=== PATIENT | male | born 1935 | race Caucasian/White ===

== ENCOUNTER 2017-10-31 20:06 | Emergency (ER) | payer MEDICARE, OTHER ==
[~2017-10-31] VITALS: Ht 182.9 cm; Wt 100.0 kg
[~2017-10-31 20:06] MED LIST: CARB1TAB37 PO; PRAM0.253 PO
[2017-10-31] MEDS ORDERED: methylPREDNISolone sod succ 125mg/2ml vial IV ONE (20:35)
[2017-10-31] MEDS ORDERED: albuterol 2.5 MG/3 ML nebule CONTNEB PRN (20:35)
[2017-10-31] MEDS ORDERED: glucagon, human recombinant 1mg kit IV ONE (20:50)
[2017-10-31 20:56] LABS: BASOPHILS # (AUTO) 0.1 X10'3 (0-0.2); BASOPHILS % (AUTO) 0.7 % (0-1); EOSINOPHILS # (AUTO) 0.3 X10'3 (0-0.9); EOSINOPHILS % (AUTO) 4.4 % (0-6); HEMATOCRIT 40.8 % (42.0-52.0); HEMOGLOBIN 13.6 g/dl (14.0-17.9); LYMPHOCYTES # (AUTO) 2.7 X10'3 (1.1-4.8); LYMPHOCYTES % (AUTO) 34.4 % (21-51); MEAN CORPUSCULAR HEMOGLOBIN 31.2 PG (27.0-31.0); MEAN CORPUSCULAR HGB CONC 33.4 % (33.0-36.5); MEAN CORPUSCULAR VOLUME 93.4 FL (78-98); MEAN PLATELET VOLUME 6.9 FL (7.4-10.4); MONOCYTES # (AUTO) 0.6 X10'3 (0-0.9); MONOCYTES % (AUTO) 7.8 % (2-12); NEUTROPHILS # (AUTO) 4.1 X10'3 (1.8-7.7); NEUTROPHILS % (AUTO) 52.7 % (42-75); PLATELET COUNT 179 X10'3 (140-440); RED BLOOD COUNT 4.37 X10'6 (4.70-6.10); RED CELL DISTRIBUTION WIDTH 14.4 % (11.5-14.5); WHITE BLOOD COUNT 7.7 X10'3 (4.5-11.0)
[2017-10-31 21:12] LABS: INR 1.2 INR; PARTIAL THROMBOPLASTIN TIME 25 SECONDS (22-32); PROTHROMBIN TIME 12.2 SECONDS (9.0-12.0)
[2017-10-31 21:14] LABS: ALANINE AMINOTRANSFERASE 13 U/L (12-78); ALBUMIN 3.5 G/DL (3.4-5.0); ALKALINE PHOSPHATASE 79 IU/L (46-116); ANION GAP 7 (8-16); ASPARTATE AMINO TRANSFERASE 19 U/L (10-37); BILIRUBIN,TOTAL 0.2 MG/DL (0.1-1.0); BLOOD UREA NITROGEN 33 MG/DL (7-18); BUN/CREATININE RATIO 22.9 (5.4-32.0); CALCIUM 9.2 MG/DL (8.5-10.1); CHLORIDE 111 MMOL/L (99-107); CREATININE 1.44 MG/DL (0.60-1.10); GLUCOSE 106 MG/DL (70-104); SODIUM 145 MMOL/L (135-145); eGFR 47 ML/MIN
[2017-10-31 21:16] LABS: POTASSIUM 4.8 MMOL/L (3.5-5.1)
[2017-10-31] MEDS ORDERED: proCHLORperazine 10 MG/2 ml inj IV ONE (21:40)
[2017-10-31 21:53] LABS: PHOSPHORUS 3.4 MG/DL (2.3-4.5)
[2017-10-31 22:46] VITALS: BP 128/62
== END 2017-11-01 | disposition home or self-care (01) ==
LOC: ER 20:07
DX: R11.10 Vomiting, unspecified (principal); R06.03 Acute respiratory distress; K22.4 Dyskinesia of esophagus; G20 Parkinson's disease; Z98.890 Other specified postprocedural states
CPT/HCPCS: 36415; 70360; 71045; 80053; 84100; 84484; 85025; 85610; 85730; 93005; 94644; 94760; 96374; 96375; 99291; J0780; J1610; J2930; 94640

== ENCOUNTER 2019-01-11 09:35 | Emergency (ER) | payer MEDICARE, OTHER ==
[~2019-01-11] VITALS: Ht 177.8 cm; Wt 88.6 kg
[2019-01-11] MEDS ORDERED: magnesium citrate 296ml oral solution PO ONE (10:00)
[2019-01-11] MEDS ORDERED: normal saline 1000ML IV soln IVB ONE (10:00)
[2019-01-11 10:33] LABS: BASOPHILS # (AUTO) 0.1 X10'3 (0-0.2); BASOPHILS % (AUTO) 0.4 % (0-1); EOSINOPHILS # (AUTO) 0.1 X10'3 (0-0.9); EOSINOPHILS % (AUTO) 0.5 % (0-6); HEMATOCRIT 42.8 % (42.0-52.0); HEMOGLOBIN 13.9 g/dl (14.0-17.9); LYMPHOCYTES # (AUTO) 0.8 X10'3 (1.1-4.8); LYMPHOCYTES % (AUTO) 7.1 % (21-51); MEAN CORPUSCULAR HEMOGLOBIN 31.2 PG (27.0-31.0); MEAN CORPUSCULAR HGB CONC 32.5 g/dL (33.0-36.5); MEAN CORPUSCULAR VOLUME 95.7 FL (78-98); MONOCYTES # (AUTO) 1.1 X10'3 (0-0.9); MONOCYTES % (AUTO) 9.3 % (2-12); NEUTROPHILS # (AUTO) 9.9 X10'3 (1.8-7.7); NEUTROPHILS % (AUTO) 82.7 % (42-75); PLATELET COUNT 173 X10'3 (140-440); RED BLOOD COUNT 4.47 X10'6 (4.70-6.10); RED CELL DISTRIBUTION WIDTH 14.5 % (11.5-14.5)
[2019-01-11 10:44] LABS: ALANINE AMINOTRANSFERASE 8 U/L (12-78); ALBUMIN 3.6 G/DL (3.4-5.0); ALBUMIN/GLOBULIN RATIO 1.1 (1.1-1.5); ALKALINE PHOSPHATASE 100 IU/L (46-116); ANION GAP 7 (8-16); ASPARTATE AMINO TRANSFERASE 25 U/L (10-37); BILIRUBIN,TOTAL 0.6 MG/DL (0.1-1.0); BLOOD UREA NITROGEN 30 MG/DL (7-18); BUN/CREATININE RATIO 18.6 (5.4-32.0); CALCIUM 9.8 MG/DL (8.5-10.1); CHLORIDE 108 MMOL/L (99-107); CREATININE 1.61 MG/DL (0.60-1.10); GLUCOSE 106 MG/DL (70-104); POTASSIUM 4.4 MMOL/L (3.5-5.1); SODIUM 144 MMOL/L (135-145); TOTAL CARBON DIOXIDE 29.3 MMOL/L (24-32); eGFR 41 ML/MIN
[2019-01-11 11:24] LABS: CLARITY,URINE CLEAR (Clear); COLOR,URINE YELLOW (Yellow); GLUCOSE, URINE NEGATIVE (Neg); KETONES,URINE NEGATIVE (Neg); LEUKOCYTE ESTERASE ,URINE NEGATIVE (Neg); NITRITES, URINE NEGATIVE (Neg); OCCULT BLOOD,URINE TRACE-INTACT (Neg); PH,URINE 7.5 (4.8-8.0); PROTEIN,URINE NEGATIVE (Neg); UROBILINOGEN,URINE 0.2 E.U/dL (0.2-1.0)
[2019-01-11 11:28] LABS: UA COLLECTION TYPE STRAIGHT CATH
[2019-01-11 11:30] LABS: BACTERIA,URINE NONE SEEN /HPF (Neg); WBC,URINE 0-4 /HPF (0-4)
[2019-01-11 11:31] LABS: MUCUS STRANDS NONE SEEN /LPF (Neg); SQUAMOUS EPITHELIAL CELL,UR FEW /LPF (FEW)
--- NOTE | 2019-01-11 11:38 | NUR ---
PROVIDER PERFORMED RECTAL EXAM. SMALL AMOUNT OF FORMED STOOL OBTAINED. PROVIDER DISCUSSED PLAN OF CARE WITH PATIENT AND CAREGIVER. PATIENT CLEANED OF SMALL AMOUNT OF LIGHT BROWN STOOL.
[2019-01-11] MEDS ORDERED: mineral oil 133ml enema RC PRN (12:10)
[2019-01-11] MEDS ORDERED: mineral oil 133ml enema RC ONE (12:10)
--- NOTE | 2019-01-11 12:28 | NUR ---
PT UNABLE TO HOLD BUT A SCANT AMOUT OF FLUID/ENEMA BEFORE IT BEGINS TO LEAK OUT, THEN PLACED ON BSC WITH MINIMAL RESULTS.
--- NOTE | 2019-01-11 13:23 | NUR ---
Pt continues to sit on comode with head automatic sawyer at bedside.
--- NOTE | 2019-01-11 13:43 | NUR ---
pt to x ray, noted to have significant results.
--- NOTE | 2019-01-11 14:03 | NUR ---
PT RETURN FROM X RAY
[2019-01-11] MEDS ORDERED: zinc oxide ointment 30gm tube TP SCH (14:20)
[2019-01-11] MEDS ORDERED: zinc oxide ointment 30gm tube TP ONE (14:20)
[2019-01-11 14:49] VITALS: BP 114/36
== END 2019-01-11 14:51 | disposition home or self-care (01) ==
LOC: ER 09:35
DX: K40.90 Unilateral inguinal hernia, without obstruction or gangrene, not specified as recurrent (principal); K59.00 Constipation, unspecified; E86.0 Dehydration; R06.02 Shortness of breath; Z98.890 Other specified postprocedural states; Z79.899 Other long term (current) drug therapy
CPT/HCPCS: 36415; 74018; 80053; 81001; 82140; 85025; 96360; 99284; J7030; P9612

== ENCOUNTER 2019-01-11 20:46 | Emergency (ER) | payer MEDICARE, OTHER ==
[~2019-01-11] VITALS: Ht 182.9 cm; Wt 85.0 kg
[2019-01-11] MEDS ORDERED: normal saline 1000ML IV soln IVB ONE (21:10)
[2019-01-11 21:58] LABS: BASOPHILS % (AUTO) 0.2 % (0-1); EOSINOPHILS # (AUTO) 0.1 X10'3 (0-0.9); EOSINOPHILS % (AUTO) 0.9 % (0-6); HEMATOCRIT 39.3 % (42.0-52.0); HEMOGLOBIN 12.9 g/dl (14.0-17.9); LYMPHOCYTES # (AUTO) 1.3 X10'3 (1.1-4.8); MEAN CORPUSCULAR HEMOGLOBIN 31.4 PG (27.0-31.0); MEAN CORPUSCULAR HGB CONC 32.9 g/dL (33.0-36.5); MEAN CORPUSCULAR VOLUME 95.5 FL (78-98); MONOCYTES # (AUTO) 1.4 X10'3 (0-0.9); MONOCYTES % (AUTO) 10.9 % (2-12); NEUTROPHILS # (AUTO) 10.1 X10'3 (1.8-7.7); PLATELET COUNT 166 X10'3 (140-440); RED BLOOD COUNT 4.12 X10'6 (4.70-6.10); RED CELL DISTRIBUTION WIDTH 14.5 % (11.5-14.5); WHITE BLOOD COUNT 12.9 X10'3 (4.5-11.0)
[2019-01-11 22:12] LABS: ALANINE AMINOTRANSFERASE 15 U/L (12-78); ALBUMIN 3.2 G/DL (3.4-5.0); ALBUMIN/GLOBULIN RATIO 0.9 (1.1-1.5); ALKALINE PHOSPHATASE 87 IU/L (46-116); ANION GAP 1 (8-16); ASPARTATE AMINO TRANSFERASE 25 U/L (10-37); BILIRUBIN,TOTAL 0.5 MG/DL (0.1-1.0); BLOOD UREA NITROGEN 32 MG/DL (7-18); BUN/CREATININE RATIO 20.5 (5.4-32.0); CALCIUM 9.3 MG/DL (8.5-10.1); CHLORIDE 111 MMOL/L (99-107); CREATININE 1.56 MG/DL (0.60-1.10); GLUCOSE 105 MG/DL (70-104); POTASSIUM 4.3 MMOL/L (3.5-5.1); SODIUM 145 MMOL/L (135-145); TOTAL CARBON DIOXIDE 33.2 MMOL/L (24-32); TOTAL PROTEIN 6.6 G/DL (6.4-8.2); eGFR 43 ML/MIN
[2019-01-11 23:07] VITALS: BP 112/56
== END 2019-01-11 23:13 | disposition home or self-care (01) ==
LOC: ER 20:47
DX: K92.1 Melena (principal); K64.9 Unspecified hemorrhoids; Z98.890 Other specified postprocedural states; Z79.899 Other long term (current) drug therapy
CPT/HCPCS: 36415; 80053; 85025; 99284; J7030

== ENCOUNTER 2019-01-18 09:00 | Outpatient (CLI) | payer MEDICARE ==
[2019-01-18] MEDS ORDERED: KETO15CR2 (09:40)
[2019-01-18] MEDS ORDERED: QUET150T2 PO (09:40)
[2019-01-18] MEDS ORDERED: POLY119P2 (09:40)
[2019-01-18] MEDS ORDERED: LEVE500T12 (09:40)
[2019-01-18] MEDS ORDERED: SENN-250 PO (09:40)
--- NOTE | 2019-01-18 10:30 | NUR ---
Patient ambulated with cane accompanied by caregiver from [facility] and was admitted to outpatient wound care for physician visit with David Randle MD. Wounds assessed by RN. Patient's medical history and list of current medications obtained from caregiver. 0909 -Dr. Randle at bedside accompanied by RN. Wounds assessed by MD, orders written. Plan of care discussed with patient. Dressings placed per MD orders. Patient instructed on the signs and symptoms of infection and to call the Wound Center if any occur or to go to the ED if we are closed: Increased pain in wound Increase in drainage from the wound Redness in the skin surrounding the wound Bleeding from the wound Temperature of 101 or greater Patient instructed that the weight of their body puts a large amount of pressure on their wounds. This pressure keeps the new tissue from growing and inhibits new blood vessels from forming. Explained that, if they continue to bear weight on a body part that has a wound, the time it takes to heal the wound increases, the wound may get worse or the wound may not heal at all. Patient and caregiver verbalized understanding of all discharge instructions and plan of care and patient ambulated with cane accompanied by caregiver out to [facility] in stable condition with no sign or symptom of distress at time of discharge.
== END 2019-01-18 10:15 | disposition home or self-care (01) ==
LOC: EDSTATUS 09:00 → WOUND CARE 09:00
PROVIDERS: ATTEND Surgery
DX: B35.6 Tinea cruris (principal); R21 Rash and other nonspecific skin eruption; Z79.899 Other long term (current) drug therapy; Z98.890 Other specified postprocedural states
CPT/HCPCS: A6206; G0463

== ENCOUNTER 2019-01-25 08:32 | Outpatient (CLI) | payer MEDICARE ==
[~2019-01-25 08:32] MED LIST changes: +KETO15CR2; +LEVE500T12; +POLY119P2; +QUET150T2 PO; +SENN-250 PO
--- NOTE | 2019-01-25 14:48 | NUR ---
[facility] Patient admitted to outpatient wound care for physician visit with David Randle MD. Wounds cleansed and patient assessed for changes in conditions, medications and medical history. Dr. Randle at bedside accompanied by RN. Wounds assessed and no debridement was done. Plan of care discussed with patient's caregiver. Dressings placed by caregiver per MD orders. Patient's caregiver instructed on the signs and symptoms of infection and to call the Wound Center if any occur or to go to the ED if we are closed: Increased pain in wound Increase in drainage from the wound Redness in the skin surrounding the wound Bleeding from the wound Temperature of 101 or greater Patient's caregiver instructed that the weight of their body puts a large amount of pressure on their wounds. This pressure keeps the new tissue from growing and inhibits new blood vessels from forming. Explained that, if they continue to bear weight on a body part that has a wound, the time it takes to heal the wound increases, the wound may get worse or the wound may not heal at all. Patient's caregiver verbalized understanding of all discharge instructions and plan of care. Patient left in stable condition with no sign or symptom of distress at time of discharge. Addendum: 01/25/19 at 1452 by Florida Restrepo RN Amended: Links added.
== END 2019-01-25 10:31 | disposition home or self-care (01) ==
LOC: WOUND CARE 08:32 → EDSTATUS 09:00 → WOUND CARE 10:31
PROVIDERS: ATTEND Surgery
DX: B35.6 Tinea cruris (principal); R21 Rash and other nonspecific skin eruption; Z79.899 Other long term (current) drug therapy; Z98.890 Other specified postprocedural states
CPT/HCPCS: G0463

== ENCOUNTER 2019-02-08 08:45 | Day surgery (SDC) | payer MEDICARE ==
--- NOTE | 2019-02-08 10:30 | NUR ---
Patient ambulated with cane from [facility] accompanied by caregiver and was admitted to outpatient wound care for physician visit with David Randle MD. Dressing removed, wound cleansed. Patient assessed for changes in conditions, medications and medical history. 0955 - Dr. Randle at bedside accompanied by RN. Wound assessed, time out performed by MD/RN. Wound debrided as detailed in the physician progress/procedure note. Plan of care discussed with patient. Dressings placed per MD orders. Patient instructed on the signs and symptoms of infection and to call the Wound Center if any occur or to go to the ED if we are closed: Increased pain in wound Increase in drainage from the wound Redness in the skin surrounding the wound Bleeding from the wound Temperature of 101 or greater Patient instructed that the weight of their body puts a large amount of pressure on their wounds. This pressure keeps the new tissue from growing and inhibits new blood vessels from forming. Explained that, if they continue to bear weight on a body part that has a wound, the time it takes to heal the wound increases, the wound may get worse or the wound may not heal at all. Patient and caregiver verbalized understanding of all discharge instructions and plan of care and patient ambulated with cane accompanied by caregiver out to [facility] in stable condition with no sign or symptom of distress at time of discharge.
== END 2019-02-08 10:03 | disposition home or self-care (01) ==
LOC: WOUND CARE 08:45
PROVIDERS: ATTEND Surgery
DX: B35.6 Tinea cruris (principal); S31.104D Unspecified open wound of abdominal wall, left lower quadrant without penetration into peritoneal cavity, subsequent encounter; S31.103D Unspecified open wound of abdominal wall, right lower quadrant without penetration into peritoneal cavity, subsequent encounter; R21 Rash and other nonspecific skin eruption; Z79.899 Other long term (current) drug therapy; Z98.890 Other specified postprocedural states; X58.XXXD Exposure to other specified factors, subsequent encounter
CPT/HCPCS: 97597

== ENCOUNTER 2019-03-14 05:45 | Inpatient (IN) | payer MEDICARE, OTHER ==
[2019-03-13 11:21] LABS: BASOPHILS # (AUTO) 0.1 X10'3 (0-0.2); BASOPHILS % (AUTO) 0.8 % (0-1); EOSINOPHILS # (AUTO) 0.3 X10'3 (0-0.9); EOSINOPHILS % (AUTO) 4.6 % (0-6); LYMPHOCYTES # (AUTO) 1.4 X10'3 (1.1-4.8); LYMPHOCYTES % (AUTO) 19.9 % (21-51); MEAN CORPUSCULAR HEMOGLOBIN 31.5 PG (27.0-31.0); MEAN CORPUSCULAR HGB CONC 32.8 g/dL (33.0-36.5); MEAN CORPUSCULAR VOLUME 95.9 FL (78-98); MEAN PLATELET VOLUME 7.1 FL (7.4-10.4); MONOCYTES # (AUTO) 0.6 X10'3 (0-0.9); MONOCYTES % (AUTO) 8.9 % (2-12); NEUTROPHILS # (AUTO) 4.6 X10'3 (1.8-7.7); NEUTROPHILS % (AUTO) 65.8 % (42-75); PRE OP HEMATOCRIT 39.8 % (42.0-52.0); PRE OP HEMOGLOBIN 13.1 g/dL (14.0-17.9); PRE OP PLATELET COUNT 164 X10'3 (140-440); RED BLOOD COUNT 4.16 X10'6 (4.70-6.10); RED CELL DISTRIBUTION WIDTH 14.4 % (11.5-14.5)
[2019-03-13 11:40] LABS: ALBUMIN 3.1 G/DL (3.4-5.0); ALBUMIN/GLOBULIN RATIO 0.9 (1.1-1.5); ALKALINE PHOSPHATASE 83 IU/L (46-116); BLOOD UREA NITROGEN 35 MG/DL (7-18); CALCIUM 9.5 MG/DL (8.5-10.1); CHLORIDE 111 MMOL/L (99-107); CREATININE 1.25 MG/DL (0.60-1.10); PRE OP ALT 11 U/L (30-65); PRE OP ANION GAP 4 (8-16); PRE OP AST 17 U/L (10-37); PRE OP BILIRUB, TOTAL 0.3 MG/DL (0.0-1.0); PRE OP GLUCOSE 81 MG/DL (70-104); PRE OP POTASSIUM 4.4 MMOL/L (3.4-5.1); PRE OP SODIUM 145 MMOL/L (135-145); TOTAL CARBON DIOXIDE 30.4 MMOL/L (24-32); TOTAL PROTEIN 6.6 G/DL (6.4-8.2); eGFR 55 ML/MIN
[2019-03-14] VITALS (20 sets, daily range): BP systolic 102–151; BP diastolic 34–82
[~2019-03-14] VITALS: Ht 177.8 cm; Wt 82.0 kg
[~2019-03-14 05:45] MED LIST changes: -KETO15CR2; -LEVE500T12; +LEVE500T12 PO; -POLY119P2; -PRAM0.253 PO; +PRAM1TAB4 PO; -QUET150T2 PO; +QUET50TA PO; -SENN-250 PO; +cefazolin/dext.iso 2gm/100 ML IV ONE; +famotidine 20mg tablet PO ONE
[2019-03-14] MEDS ORDERED: LIDOcaine 1% (10mg/ml) 2ml vial ONE (06:09)
[2019-03-14 06:16] LABS: CLARITY,URINE CLOUDY (Clear); COLOR,URINE YELLOW (Yellow); GLUCOSE, URINE NEGATIVE (Neg); KETONES,URINE NEGATIVE (Neg); LEUKOCYTE ESTERASE ,URINE MODERATE (Neg); NITRITES, URINE NEGATIVE (Neg); OCCULT BLOOD,URINE TRACE-LYSED (Neg); PROTEIN,URINE TRACE mg/dl (Neg); UROBILINOGEN,URINE 0.2 E.U/dL (0.2-1.0)
[2019-03-14] MEDS: ringers solution, lacted 1,000 ML IV SCH ×3 (06:22→12:27)
[2019-03-14 06:23] LABS: SQUAMOUS EPITHELIAL CELL,UR FEW /LPF (FEW); UA COLLECTION TYPE CLN CATCH MIDSTREAM; WBC,URINE TNTC /HPF (0-4)
[2019-03-14 06:24] LABS: BACTERIA,URINE 1+ /HPF (Neg); RBC,URINE 0-2 /HPF (0-2); WBC CLUMPS,URINE MANY /HPF (NEGATIVE)
[2019-03-14] MEDS ORDERED: BUPIVAcaine/PF 2.5 mg/ml (0.25%) 30ml vial ONE (07:52)
[2019-03-14] MEDS ORDERED: ceFAZolin 1000mg inj ONE (07:52)
[2019-03-14 08:32] LABS: CLARITY,URINE CLOUDY (Clear); COLOR,URINE YELLOW (Yellow); GLUCOSE, URINE NEGATIVE (Neg); KETONES,URINE NEGATIVE (Neg); LEUKOCYTE ESTERASE ,URINE MODERATE (Neg); NITRITES, URINE NEGATIVE (Neg); OCCULT BLOOD,URINE NEGATIVE (Neg); PH,URINE 6.5 (4.8-8.0); PROTEIN,URINE NEGATIVE (Neg)
[2019-03-14] MEDS ORDERED: ringers solution, lacted 1,000 ML IV SCH (08:33)
[2019-03-14] MEDS ORDERED: meperidine/PF 25mg/ml syringe IV PRN ×3 (08:35)
[2019-03-14] MEDS ORDERED: morphine 4 MG/ML inj SYRINge IV PRN ×2 (08:35)
[2019-03-14] MEDS ORDERED: ondansetron/PF 4mg/2ml inj IV PRN (08:35)
[2019-03-14] MEDS ORDERED: proCHLORperazine 10 MG/2 ml inj IV PRN (08:35)
[2019-03-14 08:37] LABS: UA COLLECTION TYPE NON-SPECIFIED
[2019-03-14] MEDS ORDERED: MIDAZolam 5mg/5ml vial ONE (08:40)
[2019-03-14] MEDS ORDERED: fentaNYL/PF 50MCG/1 ML 2ML syringe ONE (08:40)
[2019-03-14 08:43] LABS: SQUAMOUS EPITHELIAL CELL,UR FEW /LPF (FEW)
[2019-03-14 08:44] LABS: WBC,URINE TNTC /HPF (0-4)
[2019-03-14 08:45] LABS: BACTERIA,URINE 1+ /HPF (Neg); RBC,URINE 0-2 /HPF (0-2); WBC CLUMPS,URINE MODERATE /HPF (NEGATIVE)
[2019-03-14] MEDS ORDERED: nystatin 15 GM powder TP ONE (09:20)
--- NOTE | 2019-03-14 09:49 | NUR ---
Received from OR via , accompanied by Anesthesiologist DR LOWRY and report given by Anesthesiolgist. AWAKENS TO VOICE. VITALS STABLE. DRESSING DI. LUCIO PAIN. SENSATION JUST ABOVE THE HIPS. SANTAMARIA WITH CLEAR URINE.
[2019-03-14] MEDS ORDERED: HYDROcodone/acetaminophen 5mg/325mg tablet PO PRN (11:10)
--- NOTE | 2019-03-14 11:19 | NUR ---
Report called to receiving nurse. Transferred via BED Belongings . Special Issues communicated to receiving nurse. AWAKE AND ORIENTED. VITALS STABLE. DRESSING DI. LUCIO PAIN. TO SURGICAL RM 346B AT THIS TIME.
[2019-03-14] MEDS: HYDROcodone/acetaminophen 10/325mg tab PO PRN ×2 (12:57→22:04)
[2019-03-14] MEDS ORDERED: pneumococcal 23-VAL P-sac vacc 25 mcg/0.5ml vial IMVAC ONE (14:45)
[2019-03-14] MEDS: ceFAZolin 1GM/D5W- ADD-VANTAGE 50 ML IV SCH (16:22)
--- NOTE | 2019-03-14 18:37 | NUR ---
Gave report to Joie CABA
[2019-03-14] MEDS ORDERED: carbidoba-levodopa 25-100mg tablet PO SCH ×2 (20:00)
[2019-03-14] MEDS ORDERED: pramipexole 0.25mg tablet PO SCH ×2 (20:00)
[2019-03-14] MEDS: levetiracetam 250mg tablet PO SCH (20:12)
[2019-03-14] MEDS: enoxaparin 30mg/0.3ml syringe SQ SCH (20:12)
[2019-03-14] MEDS: QUEtiapine 25mg tablet PO SCH (20:12)
[2019-03-15] VITALS: BP 123/47
[2019-03-15] MEDS: ceFAZolin 1GM/D5W- ADD-VANTAGE 50 ML IV SCH ×2 (00:02→07:59)
--- NOTE | 2019-03-15 01:05 | NUR ---
Pt sats at 97 3L NC, dropped to 2L with sats at 96%. Will continue to titrate down and reassess need for O2. Patient does not wear O2 at home.
--- NOTE | 2019-03-15 06:23 | NUR ---
Problems reprioritized. Patient report given, questions answered & plan of care reviewed with ROSALES Castro.
--- NOTE | 2019-03-15 06:26 | NUR ---
Patient in room [facility]. I have received report from Joie MCKNIGHT and had the opportunity to ask questions and assume patient care.
[2019-03-15 07:00] VITALS: BP 105/50
[2019-03-15] MEDS: pramipexole 0.25mg tablet PO SCH ×2 (07:59→13:54)
[2019-03-15] MEDS: carbidoba-levodopa 25-100mg tablet PO SCH ×2 (08:00→13:34)
[2019-03-15] MEDS: levetiracetam 250mg tablet PO SCH ×2 (08:00→20:38)
[2019-03-15] MEDS: enoxaparin 30mg/0.3ml syringe SQ SCH ×2 (08:01→20:43)
[2019-03-15] MEDS: HYDROcodone/acetaminophen 10/325mg tab PO PRN ×2 (09:36→20:43)
[2019-03-15 11:00] VITALS: BP 108/52
--- NOTE | 2019-03-15 11:58 | NUR ---
WOUND INFECTION EDUCATION PROVIDED BY WOUND CARE 1. Patient instructed to call their primary doctor, or go the ED immediately if any of the following symptoms occur: * Increased pain in wound * Increase in drainage from the wound * Redness in the skin surrounding the wound * Warmth in the skin surrounding the wound * Bleeding from the wound * Temperature of 101 or greater 2. If any of these occur while in the hospital tell a nurse immediately. Addendum: 03/15/19 at 1158 by Mellisa Rivera RN Amended: Links added.
--- NOTE | 2019-03-15 12:34 | NUR ---
Wound consult: Pt s/p Reduction of right inguinoscrotal hernia; noted to have intestine in large hernia sac near scrotum in MD note. Pt L/R groin reddenned areas w/ small open areas d/c in WOC noted. Pt does have new Sx wound. Currently AOx1 and not appropriate for high protein ed at this time. PO 25% first meal post-op last night pending PO hx today. Ensure Enlive TIDWM added per MD approval; will be able to send w/ meals pending MD verification. Will continue to monitor. Rec: 1. continue regular diet 2. ensure enlive TIDWM; pending MD verification 3. MVI for wound healing per MD approval 4. IF appropriate; high protein ed prior to d/c 5. wt per rx Addendum: 03/15/19 at [address] Amended: Links added.
[2019-03-15 18:00] VITALS: BP 124/45
--- NOTE | 2019-03-15 18:51 | NUR ---
Patient in room [facility] 346. I have received report from Iwona CABA and had the opportunity to ask questions and assume patient care.
[2019-03-15] MEDS: QUEtiapine 25mg tablet PO SCH (20:40)
[2019-03-16] VITALS: BP 130/57
--- NOTE | 2019-03-16 06:23 | NUR ---
Problems reprioritized. Patient report given, questions answered & plan of care reviewed with Iwona CABA.
--- NOTE | 2019-03-16 06:32 | NUR ---
Patient in room [facility] 346. I have received report from Stan CABA and had the opportunity to ask questions and assume patient care.
[2019-03-16 07:00] VITALS: BP 137/50
[2019-03-16] MEDS: enoxaparin 30mg/0.3ml syringe SQ SCH ×2 (07:52→20:30)
[2019-03-16] MEDS: carbidoba-levodopa 25-100mg tablet PO SCH ×2 (07:53→13:39)
[2019-03-16] MEDS: levetiracetam 250mg tablet PO SCH ×2 (07:54→20:27)
[2019-03-16] MEDS: pramipexole 0.25mg tablet PO SCH ×2 (07:54→13:38)
[2019-03-16] MEDS: HYDROcodone/acetaminophen 10/325mg tab PO PRN (09:44)
[2019-03-16 11:00] VITALS: BP 93/59
--- NOTE | 2019-03-16 18:39 | NUR ---
Patient in room [facility] 346. I have received report from Iwona CABA and had the opportunity to ask questions and assume patient care.
[2019-03-16 20:00] VITALS: BP 108/58
[2019-03-16] MEDS: QUEtiapine 25mg tablet PO SCH (20:27)
[2019-03-17 00:39] VITALS: BP 120/36
--- NOTE | 2019-03-17 00:41 | NUR ---
I am aware of patients diastolic bp, MAP is 64.Patient was starting to fight as we were trying to re take BP. He is at baseline. Addendum: 03/17/19 at 0043 by Stan Zamora RN Amended: Links added.
[2019-03-17] MEDS: HYDROcodone/acetaminophen 10/325mg tab PO PRN ×2 (03:36→10:47)
--- NOTE | 2019-03-17 06:00 | NUR ---
Patient in room [facility]. I have received report from MONICA CABA and had the opportunity to ask questions and assume patient care.
--- NOTE | 2019-03-17 06:22 | NUR ---
Problems reprioritized. Patient report given, questions answered & plan of care reviewed with ROSALES Mast.
[2019-03-17 07:00] VITALS: BP 102/40
[2019-03-17] MEDS: levetiracetam 250mg tablet PO SCH (07:59)
[2019-03-17] MEDS: pramipexole 0.25mg tablet PO SCH (07:59)
[2019-03-17] MEDS: carbidoba-levodopa 25-100mg tablet PO SCH (07:59)
[2019-03-17] MEDS: enoxaparin 30mg/0.3ml syringe SQ SCH (08:00)
--- NOTE | 2019-03-17 09:40 | NUR ---
WAS ABLE TO DO PARTIAL WOUND CARE ON THIS PT. HE ABSOLUTELY REFUSED TO OPEN HIS LEGS SO THAT I COULD PUT INTERDRY BETWEEN HIS SCRODUM AND INNER THIGH. THE TECH WAS IN THERE WITH ME. I EXPLAINED TO THE PT THE IMPORTANCE OF LETTING US CARE FOR HIM AND STATED NO.
[2019-03-17 11:46] VITALS: BP 126/49
--- NOTE | 2019-03-17 13:06 | NUR ---
CALLED [facility] TO [facility]IVE [facility]ORT AT 1250. THEY ARE VERY BUSY ADN UNABLE TO COME TO THE PHONE. SPOKE WITH SARAH WHO ANSWERED THE PHONE AT [phone]. I STATED I UNDERSTAND THEY ARE BUSY PLEASE CALL ME BACK AT [phone]. AWAITING CALL TO GIVE REPORT
== END 2019-03-17 13:00 | DRG 352 ==
LOC: PAS 05:45 → SUR 3N 11:09
PROVIDERS: ADMIT Surgery; ATTEND Surgery
PROC: 3E0234Z Introduction of Serum, Toxoid and Vaccine into Muscle, Percutaneous Approach (ICD-10-PCS; 2019-03-14)
PROC: 0YU50JZ Supplement Right Inguinal Region with Synthetic Substitute, Open Approach (ICD-10-PCS; principal; 2019-03-14 08:30)
DX: K40.90 Unilateral inguinal hernia, without obstruction or gangrene, not specified as recurrent (principal); B36.9 Superficial mycosis, unspecified; J44.9 Chronic obstructive pulmonary disease, unspecified; R32 Unspecified urinary incontinence; Z23 Encounter for immunization; G20 Parkinson's disease; M19.90 Unspecified osteoarthritis, unspecified site
CPT/HCPCS: 36415; 80053; 81001; 82948; 85025; 87081; 87088; 88302; 90732; 93005; 97110; 97162; 97530; A4215; A4618; A6449; A7000; C1781; G0378; J0690; J1650; J2001; J2250; J3010; J3490; J7120

== ENCOUNTER 2019-05-03 11:55 | Emergency (ER) | payer MEDICARE, OTHER ==
[~2019-05-03] VITALS: Ht 182.9 cm; Wt 102.0 kg
[~2019-05-03 11:55] MED LIST changes: -cefazolin/dext.iso 2gm/100 ML IV ONE; -famotidine 20mg tablet PO ONE
[2019-05-03] MEDS ORDERED: SULF1TAB49 PO (12:44)
[2019-05-03] MEDS ORDERED: sulfamethoxazole/trimethoprim DS (800/160mg) tablet PO ONE (12:45)
--- NOTE | 2019-05-03 13:16 | NUR ---
ASSUMED CARE OF PT FROM EDUARDO CABA
[2019-05-03 13:19] LABS: CLARITY,URINE CLOUDY (Clear); COLOR,URINE YELLOW (Yellow); GLUCOSE, URINE NEGATIVE (Neg); KETONES,URINE NEGATIVE (Neg); LEUKOCYTE ESTERASE ,URINE LARGE (Neg); NITRITES, URINE NEGATIVE (Neg); OCCULT BLOOD,URINE MODERATE (Neg); PROTEIN,URINE TRACE mg/dl (Neg); UROBILINOGEN,URINE 0.2 E.U/dL (0.2-1.0)
[2019-05-03 13:28] LABS: UA COLLECTION TYPE CLN CATCH MIDSTREAM
[2019-05-03 13:32] LABS: WBC,URINE 30-50 /HPF (0-4)
[2019-05-03 13:33] LABS: WBC CLUMPS,URINE FEW /HPF (NEGATIVE)
[2019-05-03 13:34] LABS: AMORPHOUS PHOSPHATES 2+; MUCUS STRANDS MODERATE /LPF (Neg); TRANSITIONAL EPI CELLS,URINE FEW /HPF
[2019-05-03 13:35] LABS: BACTERIA,URINE 1+ /HPF (Neg)
[2019-05-03 13:36] LABS: SQUAMOUS EPITHELIAL CELL,UR FEW /LPF (FEW)
[2019-05-03 13:37] LABS: HYALINE CASTS 0-3 /LPF (NEGATIVE)
--- NOTE | 2019-05-03 14:12 | NUR ---
staton is draining cloudy yellow urine, plan to dc home with Vicki Cargo, ETA 20 minutes
[2019-05-03 14:43] VITALS: BP 121/84
--- NOTE | 2019-05-03 14:44 | NUR ---
pt dc'd home with yuliana cargo, staton continuing to drain slightly cloudy urine,
== END 2019-05-03 14:46 | disposition home or self-care (01) ==
LOC: ER 11:56
DX: T83.098A Other mechanical complication of other urinary catheter, initial encounter (principal); T83.511A Infection and inflammatory reaction due to indwelling urethral catheter, initial encounter; G20 Parkinson's disease; F02.80 Dementia in other diseases classified elsewhere, unspecified severity, without behavioral disturbance, psychotic disturbance, mood disturbance, and anxiety; Z98.890 Other specified postprocedural states; Z79.899 Other long term (current) drug therapy; Y84.6 Urinary catheterization as the cause of abnormal reaction of the patient, or of later complication, without mention of misadventure at the time of the procedure; Y92.89 Other specified places as the place of occurrence of the external cause
CPT/HCPCS: 51702; 81001; 87077; 87088; 87186; 99284